=== PATIENT | male | born 1975 ===

== ENCOUNTER → 2016-05-15 | Outpatient (CLI) | payer BC ==
[2016-05-15 16:28] LABS: BASOPHILS % (AUTO) 0 % (0-2); EOSINOPHILS # (AUTO) 0.4 10^3uL; EOSINOPHILS % (AUTO) 4 % (0-4); LYMPHOCYTES # (AUTO) 2.4 X10^3; MEAN CORPUSCULAR HEMOGLOBIN 32.4 PG (26.0-34.0); MEAN CORPUSCULAR HGB CONC 35.6 g/dL (31.0-37.0); MEAN CORPUSCULAR VOLUME 91 FL (80-100); MEAN PLATELET VOLUME 10.1 FL (6.0-9.5); MONOCYTES # (AUTO) 0.8 X10^3; MONOCYTES % (AUTO) 9 % (3-11); NEUTROPHILS # (AUTO) 5.9 X10^3; NEUTROPHILS % (AUTO) 61 % (51-67); PLATELET COUNT 234 10^3uL (150-450)
[2016-05-15 16:37] LABS: ALBUMIN 4.7 g/dL (3.4-5.0); ALKALINE PHOSPHATASE 95 U/L (38-126); AMYLASE* 86 U/L (25-115); ANION GAP 14.9 MEQ/L (3-15); BUN/CREATININE RATIO 16 (10-20); CALCULATED IONIZED CALCIUM 4.4 mg/dL (3.8-4.6); LIPASE* 84 U/L (23-300)
[2016-05-15 16:45] LABS: BILIRUBIN,URINE Negative (Negative); CLARITY,URINE Clear; COLOR,URINE Yellow; GLUCOSE, URINE (UA) Negative (Negative); LEUKOCYTE ESTERASE ,URINE Negative (Negative); PH,URINE 8.5 (5.0 - 8.0); UROBILINOGEN,URINE 0.2 mg/dL (0.2-1.0)
[2016-05-15 17:26] LABS: AMORPHOUS SEDIMENT,UR 2+ /HPF; RBC,URINE None Seen /HPF; URINE CENTRIFUGED VOLUME 12 mL
== END ==
LOC: LAB 16:05
PROVIDERS: ATTEND Family Medicine
DX: K80.00 Calculus of gallbladder with acute cholecystitis without obstruction (principal); N39.0 Urinary tract infection, site not specified; E13.65 Other specified diabetes mellitus with hyperglycemia; E03.4 Atrophy of thyroid (acquired)
CPT/HCPCS: 36415; 80053; 81003; 81015; 82150; 82977; 83036; 83690; 84436; 84443; 85025

== ENCOUNTER → 2016-05-17 | Outpatient (CLI) | payer BC ==
--- NOTE | 2016-05-17 09:37 | Diagnostic Imaging Report ---
PROCEDURE: US Gallbladder. TECHNIQUE: Multiple real-time grayscale images were obtained over the right upper quadrant in various projections. INDICATION: Acute cholecystitis. FINDINGS: There is increased echogenicity of liver compatible with fatty infiltration. There is a focal echogenic area in the right lobe of liver measuring 2.7 cm suspect for hemangioma. There is no biliary ductal dilatation. Common bile duct measures 3 mm. There is no cholelithiasis, gallbladder wall thickening or pericholecystic fluid. The abdominal aorta is nonaneurysmal. Pancreas is not well-seen due to bowel gas. Right kidney is normal. There is no ascites. IMPRESSION: Focal echogenic lesion in right lobe of liver measuring 2.7 cm. This is nonspecific, however, most suspect for hemangioma. This should be further characterized with three-phase contrast-enhanced CT to exclude the possibility of neoplastic lesion. Otherwise unremarkable right upper quadrant ultrasound. Specifically, the gallbladder is unremarkable. Dictated by: Dictated on workstation # [id number]
== END ==
LOC: RAD 08:29
PROVIDERS: ATTEND Family Medicine
DX: K80.00 Calculus of gallbladder with acute cholecystitis without obstruction (principal); K76.9 Liver disease, unspecified
CPT/HCPCS: 76705

== ENCOUNTER → 2016-05-25 | Outpatient (CLI) | payer BC | LOC: RAD 06:50 | PROVIDERS: ATTEND Family Medicine | DX: D18.09 Hemangioma of other sites (principal); N28.89 Other specified disorders of kidney and ureter | CPT/HCPCS: 74170; Q9967 ==

== ENCOUNTER → 2016-06-06 | Outpatient (CLI) | payer BC | LOC: RAD 07:13 | PROVIDERS: ATTEND Family Medicine | DX: N28.89 Other specified disorders of kidney and ureter (principal) | CPT/HCPCS: 76770 ==